=== PATIENT | male | born 1960 | race Caucasian/White ===

== ENCOUNTER → 2019-09-04 | Outpatient (REF) | payer BC, OTHER ==
[2019-09-04 17:47] LABS: APPEARANCE, URINE CLOUDY (CLEAR); BACTERIA, URINE AUTO 1+ (NEGATIVE); BILIRUBIN, URINE AUTO NEGATIVE (NEGATIVE); BLOOD, URINE BLOOD 3+ (NEGATIVE); COLOR, URINE YELLOW (YELLOW); GLUCOSE, URINE (UA) AUTO NEGATIVE (NEGATIVE); KETONE, URINE AUTO NEGATIVE (NEGATIVE); LEUKOCYTE ESTERASE, URINE AUTO 2+ (NEGATIVE); NITRITE, URINE AUTO NEGATIVE (NEGATIVE); PROTEIN, URINE AUTO 1+ mg/dL (NEGATIVE); RBC, URINE AUTO TNTC /HPF (0-3); SQUAMOUS EPITHELIAL CELL UR AU 0 /HPF (0-6); UROBILINOGEN, URINE AUTO 0.2 mg/dL (0.0-2.0); WBC, URINE AUTO TNTC /HPF (0-3)
== END ==
LOC: M SMT 16:43
PROVIDERS: ATTEND Nurse Practitioner Family
DX: R32 Unspecified urinary incontinence (principal)

== ENCOUNTER → 2019-09-08 | Outpatient (CLI) | payer BC, OTHER ==
[~2019-09-08] MED LIST: ISOVUE-370 76% 100ML VIAL (Q9967) As Ordered ONE
--- NOTE | 2019-09-08 16:56 | REP ---
CT abdomen and pelvis without and with IV contrast: Dual-phase postcontrast, CT urography protocol. History: Gross hematuria. No comparison studies. CT contrast dose: 100 ml of intravenous Isovue 370. CT findings: Preliminary digital football scout radiograph is unremarkable. The lung bases are clear on axial CT images. There is mild diffuse fatty infiltration of the liver. No focal liver lesion is seen. The liver is not enlarged. Spleen is homogenous in texture normal in size. No adrenal lesion is seen on either side. There is an accessory splenule in the left upper quadrant. No abnormalities noted in the gallbladder. The pancreas contains one punctate parenchymal calcification in the tail. No other pancreatic abnormality is observed. No retroperitoneal mass or adenopathy is seen. Minimal vascular calcification is observed. Small and large intestinal bowel loops are normal in the abdomen and pelvis. No abdominal wall defect is seen. There is left colonic diverticulosis involving the sigmoid colon and distal descending colon. There is no CT evidence of diverticulitis. Seminal vesicles prostate and urinary bladder are unremarkable. There is a 2.2 cm cyst in the upper pole of the right kidney. There is a slightly hyperdense nonenhancing 7 mm cyst projecting at the periphery of the lower pole of the right kidney. No renal mass lesion is observed. Kidneys enhance symmetrically. Collecting systems are unremarkable and symmetric on delayed scan images. No ureteral abnormalities observed. No filling defect is seen in the bladder. There is some diffuse bladder wall thickening although the urinary bladder is largely empty at the time of scanning. No bony destructive lesion is seen. Impression: Diffuse pattern of the urinary bladder wall thickening. Left colonic diverticulosis. Two small right renal cysts. Mild fatty infiltration of the liver. Otherwise negative. Electronically Signed by Bhavik Godfrey MD 09/08/2019 10:09 P
== END ==
LOC: M RAD 14:51
PROVIDERS: ATTEND Nurse Practitioner Family
DX: R31.0 Gross hematuria (principal); K57.30 Diverticulosis of large intestine without perforation or abscess without bleeding; N28.1 Cyst of kidney, acquired; K76.0 Fatty (change of) liver, not elsewhere classified
CPT/HCPCS: 74178; Q9967

== ENCOUNTER 2020-06-03 11:41 | Emergency (ER) | payer BC, OTHER ==
[~2020-06-03] VITALS: Ht 182.9 cm; Wt 148.7 kg
[2020-06-03 12:41] LABS: BASO # 0.1 10^3/uL (0.0-0.2); BASO % 0.9 % (0.0-1.0); EOS # 0.2 10^3/uL (0.0-0.5); EOS % 1.9 % (0.0-3.0); HEMATOCRIT 38.3 % (42.0-52.0); HEMOGLOBIN 12.8 g/dl (13.5-17.5); LYMPH # 1.8 10^3/uL (1.5-5.0); LYMPH % 23.2 % (24.0-44.0); MEAN CORPUSCULAR HEMOGLOBIN 28.5 pg (27.0-33.0); MEAN CORPUSCULAR HGB CONC 33.4 g/dl (32.0-36.5); MEAN CORPUSCULAR VOLUME 85.3 fl (80.0-96.0); MONO # 0.6 10^3/uL (0.0-0.8); NEUTROPHILS # 5.2 10^3/uL (1.5-8.5); NEUTROPHILS % 65.7 % (36.0-66.0); PLATELET COUNT, AUTOMATED 317 10^3/uL (150-450); RED BLOOD COUNT 4.49 10^6/uL (4.30-6.10); WHITE BLOOD COUNT 7.8 10^3/uL (4.0-10.0)
--- NOTE | 2020-06-03 12:50 | REP ---
INDICATION: bilateral LE swelling; L>R COMPARISON: None. TECHNIQUE: Real time compression and duplex Doppler interrogation of the bilateral lower extremity deep venous system is performed. FINDINGS: Bilaterally, the common femoral, superficial femoral and popliteal veins are fully compressible with transducer pressure and demonstrate normal spontaneous and phasic flow, without evidence of deep venous thrombosis. IMPRESSION: No evidence of deep venous thrombosis of the bilateral lower extremity femoral popliteal venous system. <Electronically signed by Omar Thorpe > 06/03/20 0015
[2020-06-03 13:09] LABS: ALBUMIN 3.1 GM/DL (3.2-5.2); ALT/SGPT 30 U/L (12-78); BILIRUBIN,TOTAL 0.9 MG/DL (0.2-1.0); BLOOD UREA NITROGEN 12 MG/DL (7-18); CALCIUM LEVEL 8.2 MG/DL (8.8-10.2); CARBON DIOXIDE LEVEL 24 MEQ/L (21-32); CHLORIDE LEVEL 110 MEQ/L (98-107); CREATININE FOR GFR 0.68 MG/DL (0.70-1.30); GLOMERULAR FILTRATION RATE > 60.0 (>49); GLUCOSE, FASTING 167 MG/DL (70-100); POTASSIUM SERUM 4.1 MEQ/L (3.5-5.1); SODIUM LEVEL 140 MEQ/L (136-145); TOTAL PROTEIN 6.7 GM/DL (6.4-8.2)
[2020-06-03] MEDS ORDERED: KEFL500C17 PO (13:22)
[2020-06-03 13:46] VITALS: BP 157/76
== END 2020-06-03 14:00 | disposition home or self-care (01) ==
LOC: M ED 11:41
DX: R22.43 Localized swelling, mass and lump, lower limb, bilateral (principal); L03.116 Cellulitis of left lower limb; E11.9 Type 2 diabetes mellitus without complications; I10 Essential (primary) hypertension

== ENCOUNTER 2020-10-10 12:56 | Emergency (ER) | payer BC, OTHER ==
[~2020-10-10] VITALS: Ht 182.9 cm; Wt 145.4 kg
[~2020-10-10 12:56] MED LIST changes: -ISOVUE-370 76% 100ML VIAL (Q9967) As Ordered ONE; +KEFL500C17 PO
[2020-10-10] MEDS ORDERED: INSULANT (13:05)
[2020-10-10] MEDS ORDERED: ATOR1TAB21 (13:05)
[2020-10-10] MEDS ORDERED: LISI20TA20 (13:05)
[2020-10-10] MEDS ORDERED: GLYB5TAB6 (13:05)
[2020-10-10] MEDS ORDERED: ROBA750T4 PO (14:06)
[2020-10-10] MEDS ORDERED: NAPR-837 PO (14:06)
[2020-10-10 14:13] VITALS: BP 140/74
== END 2020-10-10 14:15 | disposition home or self-care (01) ==
LOC: M ED 12:56
DX: M54.5 Low back pain (principal); I10 Essential (primary) hypertension; E11.9 Type 2 diabetes mellitus without complications; Z79.4 Long term (current) use of insulin; Z79.899 Other long term (current) drug therapy

== ENCOUNTER → 2024-09-13 | Outpatient (CLI) | payer BC ==
[~2024-09-13] MED LIST changes: +ATOR1TAB21; +GLYB5TAB6; +INSULANT; +LISI20TA37; +NAPR-837 PO; +ROBA750T4 PO
== END ==
LOC: M RAD 14:00
PROVIDERS: ATTEND Surgery
DX: I87.312 Chronic venous hypertension (idiopathic) with ulcer of left lower extremity (principal)